=== PATIENT | male | born 1935 | race Caucasian/White ===

== ENCOUNTER 2023-10-15 14:39 | Emergency (ER) | payer MEDICARE, SELFPAY ==
--- NOTE | ~2023-10-15 | CT_ITS ---
EXAMINATION: CT brain wo con DATE: 10/15/2023 15:07 INDICATION: Fall onto face. TECHNIQUE: Computed tomography (CT) of the head was performed without intravenous contrast. The mA wa s adjusted according to patient size. Iterative reconstruction technique was employed. Exam dose: 68 1.00 mGy-cm total exam DLP. COMPARISON: None FINDINGS: Prominent left vertebral artery and basilar artery as well as prominent bilateral carotid s iphon internal carotid artery calcifications. There is nonspecific diminished attenuation of the cerebral white matter, likely due to chronic small vessel ischemic changes. There is mildly prominent central and cortical cerebral atrophy and cerebellar atrophy. No intracranial mass lesion or hemorrhage or cerebrovascular accident, midline shift or mass effect i s noted. No subdural or epidural hematoma. The orbital contents are unremarkable. Small fluid level in the left maxillary antrum and right sphenoid sinus. The paranasal sinuses and ma stoid air cells are otherwise unremarkable. No fracture or bone destruction of the cranial vault. IMPRESSION: Fluid levels in the right sphenoid and left maxillary sinus No skull fracture or acute intracranial finding Cerebral atherosclerosis and chronic small vessel ischemic changes in the cerebral white matter moder ately prominent cerebral and cerebellar atrophy Reviewed, dictated and finalized at [facility]. Reviewed, dictated and finalized at [facility]. IMPRESSION: Fluid levels in the right sphenoid and left maxillary sinus No skull fracture or acute intracranial finding Cerebral atherosclerosis and chronic small vessel ischemic changes in the cereb ral white matter moderately prominent cerebral and cerebellar atrophy
--- NOTE | ~2023-10-15 | CT_ITS ---
EXAMINATION: 1. CT facial & cervical spine wo DATE: 10/15/2023 15:08 INDICATION: Facial trauma post fall TECHNIQUE: 1. Computed tomography (CT) of the maxillofacial region and of the cervical spine were performed with out intravenous contrast. Sagittal and coronal reconstructions of both regions were obtained. Automat ed exposure control and iterative reconstruction technique were employed. The dose-length product was 543.64 mGy-cm. COMPARISON: None. FINDINGS: Maxillofacial CT: Comminuted fractures of the bilateral nasal bones with mild leftward and posterior angulation of the nasal bone fragments bones and minimal up to 1 mm maximal displacement. No additional maxillofacial f ractures. Specifically the zygomatic arches, mandible and clayton of the orbits and maxillary sinuses a re all intact. 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 Mild rightward bowing of the nasal septum with small right-sided spike each of which parallels the contours of the turbina samanta with no evident acute fracture. There are few absent teeth, dental restorations and dental caries . There is impacted left maxillary canine. Prominent periapical lucency surrounding the posterior mos t remaining right mandibular molar as well as at the tip of the immediately more anterior glandular i mplant the right mandible. There is some mucosal thickening in the bilateral ethmoid sinuses and left sphenoid sinuses and with additional small amount of dependently layering fluid in the left maxillar y and right sphenoid sinuses. Changes of bilateral intraocular lens replacement. Orbits are otherwise normal. Mastoid air cells and middle ear cavities are clear. Cervical spine CT: 2 mm anterolisthesis C7 on T1. Mild cervicothoracic dextrocurvature. Vertebral body heights are iliana l. No fracture. Severe cervical spondylosis with fusion across the C4-C5 disc space and the C4-C5 fac et joints on the right from C4-C6 facet joints on the left is also the C2-C3 facet joints on the left . Additional severe disc height loss at C5-C6 through T2-T3, moderate disc height loss at C3-C4 and T 3-T4 and mild disc height loss at C2-C3. There is also severe osteoarthritis at the atlantoaxial [place] culation and at multiple the unfused cervical facet and uncovertebral joints. Posterior disc osteophy te complexes resulting in multilevel mild central canal stenosis most prominent at C6-C7. There is al so multilevel mild to moderate neural foraminal stenosis most prominent on the left at C5-C6. Mild bi apical pleural-parenchymal scarring. Ectatic aortic arch the visualized portion measuring up to 3.8 c m in maximal diameter. IMPRESSION: 1. Comminuted bilateral nasal bone fractures with mild posterior and leftward deviation and minimal d isplacement. 2. Severe cervical spondylosis with no acute osseous abnormality. Reviewed, dictated and finalized at [facility]. IMPRESSION: 1. Comminuted bilateral nasal bone fractures with mild posterior and leftward d eviation and minimal displacement. 2. Severe cervical spondylosis with no acute osseous abnormality.
[2023-10-15 15:08] VITALS: BP 102/38; PULSE 64; RESP 16; TEMP 37; O2SAT 100
[2023-10-15 18:44] VITALS: BP 161/75; PULSE 44; RESP 15; O2SAT 100
--- NOTE | 2023-10-15 19:47 | ED.ABDPAIN ---
HPI - Abdominal Pain General Chief Complaint: Fall Stated Complaint: fall Time Seen by Provider: 10/15/23 19:00 History of Present Illness HPI narrative: This is an 79-year-old male presenting after a fall. He was walking through [place] to get exercise. He transition from carpet to hardwood and his foot got caught and he fell forward. He caught himself but unfortunately struck his face on the ground and sustained a bloody nose. He then came to the hospital for evaluation. Patient denies loss of consciousness, persistent, vomiting or neurologic deficits. Bleeding was controlled with a nasal tampon At the assisted living facility. He also has a small cut the base of thumb. Last tetanus was over 20 years ago. Related Data Allergies Allergy/AdvReac Type Severity Reaction Status Date / Time ciprofloxacin Allergy Hives Verified 10/15/23 18:43 nitrofurantoin Allergy Hives Verified 10/15/23 18:43 [From Macrobid] Exam Narrative: APPEARANCE: No apparent distress. Head: atraumatic. EYES: EOMI, NOSE: Swelling to the nose with a small superficial laceration. Repaired with Steri-Strips. NECK: Trachea midline RESPIRATORY: No increased rate of breathing CARDIOVASCULAR: RRR, ABDOMINAL: Non-distended MUSCULOSKELETAl: No obvious deformities NEURO: Alert. Cranial nerves 2-12 grossly intact. Sensation light touch, motor function cerebellar function intact for 4 extremities. Gait exam was normal. SKIN:: Superficial laceration to the bridge of the nose, small laceration to the base of the thumb on the right hand PSYCHIATRIC: Normal affect Course Vital Signs Vital signs: Vital Signs Temperature 98.6 F 10/15/23 15:08 Pulse Rate 64 10/15/23 15:08 Respiratory Rate 16 10/15/23 15:08 Blood Pressure 102/38 L 10/15/23 15:08 Pulse Oximetry 100 10/15/23 15:08 Temperature 98.6 F 10/15/23 15:08 Pulse Rate 44 L 10/15/23 18:44 Respiratory Rate 15 10/15/23 18:44 Blood Pressure 161/75 H 10/15/23 18:44 Pulse Oximetry 100 10/15/23 18:44 MDM - Abdominal Pain MDM Narrative Medical decision making narrative: -Course: 87-year-old male presenting with a mechanical fall. CT of C-spine brain and max face showed nasal bone fractures. No septal hematoma on exam. Bleeding was controlled prior to arrival. Patient was given a tetanus shot instructed to follow-up with ENT in 10-14 days. lacerations are very minor and were repaired with Steri-Strips. -DDX includes but is not limited to: Nasal fracture, soft tissue injury, ICH, concussion -Independent interpretation of studies: CT Max/face/c spine/ brain 1. Comminuted bilateral nasal bone fractures with mild posterior and leftward deviation and minimal displacement. 2. Severe cervical spondylosis with no acute osseous abnormality. -Interventions: Tdap -Shared decision making / Disposition: discharge Imaging Data Radiologist's impression: ITS Impressions Head CT 10/15/23 15:09 IMPRESSION: Fluid levels in the right sphenoid and left maxillary sinus No skull fracture or acute intracranial finding Cerebral atherosclerosis and chronic small vessel ischemic changes in the cerebral white matter moderately prominent cerebral and cerebellar atrophy Head/Cervical Spine/Facial Bones CT 10/15/23 15:11 IMPRESSION: 1. Comminuted bilateral nasal bone fractures with mild posterior and leftward deviation and minimal displacement. 2. Severe cervical spondylosis with no acute osseous abnormality. Discharge Plan Discharge Clinical Impression: Fracture of nasal bone, Facial laceration Patient Disposition: Home, Self-Care Condition: Stable Instructions: Antibiotic Form, Nasal Fracture (ED) Additional Instructions: He was seen in the emergency department after a fall. He had a nasal bone fracture. Please follow-up with ENT in 10-14 days. Please avoid nose blowing. Use saline nasal spray if needed. Please return
[2023-10-15] MEDS: TETANUS,DIPHTHERIA,AC PERTUSSIS ADULT (0.5 ML) BOOSTRIX IM (19:59)
[2023-10-15 20:05] VITALS: BP 152/66; PULSE 61; RESP 15; O2SAT 100
== END 2023-10-15 20:06 | disposition home or self-care (01) ==
PROVIDERS: Emergency Provider Emergency Medicine
DX: S02.2XXA Fracture of nasal bones, initial encounter for closed fracture (principal); S01.21XA Laceration without foreign body of nose, initial encounter; S61.011A Laceration without foreign body of right thumb without damage to nail, initial encounter; Z23 Encounter for immunization; I67.2 Cerebral atherosclerosis; W01.0XXA Fall on same level from slipping, tripping and stumbling without subsequent striking against object, initial encounter; M47.812 Spondylosis without myelopathy or radiculopathy, cervical region
CPT/HCPCS: 70450; 70486; 72125; 90471; 90715; 99284